=== PATIENT | female | born 1970 | race Caucasian/White ===

== ENCOUNTER 2022-07-16 22:21 | Emergency (ER) | payer MEDICAID, SELFPAY ==
[2022-07-16 22:21] VITALS: BP 148/94; PULSE 102; RESP 25; TEMP 37.3; O2SAT 92; BMI 47.5
[2022-07-16 22:23] VITALS: BMI 47.5
[2022-07-16 22:30] LABS: ABG HCO3 32.5 mmhg (22.0-26.0); ABG Oxygen Saturation 76 % (90-100); ABG PH 7.36 mmol/L (7.35-7.45); ABG TCO2 34.3 mmhg (23-27)
[2022-07-16 22:32] LABS: Allen's Test Acceptable; Oxygen 3LPM N/C %; Source Left Radial
[2022-07-16 22:34] LABS: ABG PCO2 59.4 mmhg (35.0-45.0); ABG PO2 38.1 mmhg (80-100); Carboxyhemoglobin 7.1 (0.0-5.0)
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
[2022-07-16 23:01] VITALS: BP 148/80; PULSE 91; RESP 14; O2SAT 93
[2022-07-16 23:40] LABS: Basophils # 0.2 K/mm3 (0-0.2); Eosinophils # 0.4 K/mm3 (0.0-0.4); Eosinophils % 3.7 % (0.1-12.0); Hematocrit 47.5 % (37.0-47.0); Hemoglobin 14.9 g/dL (12.2-16.2); Lymphocytes # 1.9 K/mm3 (0.7-4.5); Mean Corpuscular HGB Conc 31.4 g/dL (31.8-35.4); Mean Corpuscular Hemoglobin 28.7 pg (27.0-31.2); Mean Corpuscular Volume 91.3 fl (81-99); Mean Platelet Volume 7.6 fl (7.4-10.4); Monocytes # 0.5 K/mm3 (0.1-1.0); Monocytes % 4.3 % (1.7-9.3); Neutrophils # 8.1 K/mm3 (1.8-7.8); Neutrophils % 73.1 % (37.0-80.0); Platelet Count 211 K/mm3 (142-424); Red Blood Count 5.21 M/mm3 (4.20-5.40); Red Cell Distribution Width 14.7 % (11.5-17.5); White Blood Count 11.1 K/mm3 (4.8-10.8)
[2022-07-16 23:48] LABS: Chloride 100 mmol/L (98-107); Sodium 139 mmol/L (136-145)
--- NOTE | 2022-07-16 23:50 | PC.NURSE ---
MD would like ABG repeated d/t possible venous gas. Respiratory notified
[2022-07-16 23:51] LABS: Alanine Aminotransferase 25 U/L (12-78); Albumin Level 4.2 g/dl (3.5-5.0); Albumin/Globulin Ratio 1.1 (1.1-1.8); Alkaline Phosphatase 85 U/L (38-126); Aspartate Amino Transferase 30 U/L (14-36); Bilirubin,Total 0.3 mg/dl (0.2-1.3); Blood Urea Nitrogen 10 mg/dl (7-17); Calcium 8.9 mg/dl (8.4-10.2); Carbon Dioxide 36 mmol/L (22.0-30.0); Creatinine Clearance Estimated 105 mL/min (50-200); Estimated Glomerular Filt Rate 130 ml/min (>60); GFR (African American) 157 ML/MIN (>60); Glucose 156 mg/dl (74-100); Total Protein,Serum 8.2 g/dl (6.3-8.2)
[2022-07-17 00:03] LABS: ABG Base Excess 6.7 mmol/L (-2.4-2.3); ABG HCO3 32.1 mmhg (22.0-26.0); ABG Oxygen Saturation 92 % (90-100); ABG PH 7.36 mmol/L (7.35-7.45); ABG PO2 60.9 mmhg (80-100); ABG TCO2 33.9 mmhg (23-27); Oxygen 3LPM N/C %
[2022-07-17 00:04] LABS: Allen's Test Acceptable; Source Left Radial
[2022-07-17 00:05] LABS: ABG PCO2 57.8 mmhg (35.0-45.0); Carboxyhemoglobin 6.3 (0.0-5.0)
--- NOTE | 2022-07-17 00:10 | PC.NURSE ---
Dr. Hoyos given critical abg results
[2022-07-17 00:45] VITALS: BP 139/104; PULSE 92; O2SAT 93
--- NOTE | 2022-07-17 00:47 | PC.NURSE ---
ER MD at bedside speaking with pt at this time
[2022-07-17 01:13] VITALS: BP 160/82; PULSE 103; RESP 16; TEMP 36.6; O2SAT 98
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
== END 2022-07-17 01:26 | disposition home or self-care (01) ==
PROVIDERS: Emergency Provider Emergency Medicine
DX: T20.00XA Burn of unspecified degree of head, face, and neck, unspecified site, initial encounter (principal); J44.9 Chronic obstructive pulmonary disease, unspecified; I50.9 Heart failure, unspecified; F41.9 Anxiety disorder, unspecified; F17.210 Nicotine dependence, cigarettes, uncomplicated; Z99.81 Dependence on supplemental oxygen; X08.8XXA Exposure to other specified smoke, fire and flames, initial encounter
CPT/HCPCS: 70490; 71045; 80053; 82375; 82803; 85025; 96374; 99285